=== PATIENT | female | born 1965 | race Caucasian/White ===

== ENCOUNTER 2022-05-06 09:45 | Outpatient (CLI) | payer OTHER, SELFPAY ==
[2022-05-06 15:23] LABS: Chloride* 109 mmol/L (96-114)
[2022-05-06 15:24] LABS: Albumin* 4.3 g/dL (3.3-5.0); Potassium* 4.9 mmol/L (3.6-5.1); Sodium* 142 mmol/L (135-149)
[2022-05-06 15:26] LABS: Carbon Dioxide* 28 mmol/L (20-32); Cholesterol* 215 mg/dL (90-199)
[2022-05-06 15:27] LABS: Alanine Aminotransferase* 15 U/L (4-35); Alkaline Phosphatase* 100 U/L (40-150); Aspartate Amino Transferase* 18 U/L (12-35); Bilirubin Total* 0.8 mg/dL (0.1-1.5); Blood Urea Nitrogen* 12 mg/dL (7-30); Calcium* 9.9 mg/dL (8.4-10.6); Creatinine* 0.9 mg/dL (0.5-1.5); Estimated Glomerular Filt Rate 75 ml/min; Glucose* 95 mg/dL (60-115); Total Protein* 6.9 g/dL (6.0-8.3); Triglycerides* 78 mg/dL (40-149)
[2022-05-06 15:28] LABS: HDL Cholesterol* 64 mg/dL (>=50); LDL Cholesterol Calculated 135 mg/dL (<100)
[2022-05-06 16:12] LABS: Vitamin B12* 873 pg/mL (243-894)
== END 2022-05-06 09:46 | disposition home or self-care (01) ==
PROVIDERS: PCP Physician Assistant Medical; Visit Provider Physician Assistant Medical
DX: Z00.00 Encounter for general adult medical examination without abnormal findings (principal); E66.01 Morbid (severe) obesity due to excess calories; Z13.6 Encounter for screening for cardiovascular disorders
CPT/HCPCS: 80053; 80061; 82607

== ENCOUNTER 2023-01-21 08:00 | Outpatient (RCR) | payer OTHER, SELFPAY | END 2023-02-02 11:11 | disposition home or self-care (01) | PROVIDERS: PCP Physician Assistant Medical; Visit Provider Physician Assistant Medical | DX: M25.551 Pain in right hip (principal); M54.50 Low back pain, unspecified; Z51.89 Encounter for other specified aftercare | CPT/HCPCS: 97110; 97140; 97161 ==

== ENCOUNTER 2023-03-03 11:46 | Outpatient (CLI) | payer OTHER, SELFPAY ==
[2023-03-03 23:32] LABS: Chlamydia DNA Amplified* NOT DETECTED (No Detected); GC DNA Amplified* NOT DETECTED (No Detected)
== END 2023-03-03 11:47 | disposition home or self-care (01) ==
PROVIDERS: PCP Physician Assistant Medical; Visit Provider Physician Assistant Medical
DX: Z00.00 Encounter for general adult medical examination without abnormal findings (principal); E53.8 Deficiency of other specified B group vitamins; E66.01 Morbid (severe) obesity due to excess calories; R53.83 Other fatigue; Z11.3 Encounter for screening for infections with a predominantly sexual mode of transmission
CPT/HCPCS: 82306; 82728; 83540; 83550; 84443; 87491; 87591

== ENCOUNTER 2023-05-03 13:19 | Outpatient (CLI) | payer OTHER, SELFPAY ==
--- NOTE | 2023-05-03 14:00 | CRLHL7_ITS ---
For Patients: As a result of the Century Cures Act, medical imaging exams and procedure reports are released immediately into your electronic medical record. You may view this report before your referring provider. If you have questions, please contact your health care provider. INDICATION: Eval for constipation, mass, ovary Abdomen pain for weeks RLQ PAIN . TECHNIQUE: CT abdomen and pelvis acquired with 100 cc Omnipaque 350 IV contrast. COMPARISON: None. FINDINGS: Lower chest: Unremarkable. Liver: Unremarkable. Normal in size and attenuation. No suspicious masses. Gallbladder and bile ducts: Unremarkable. No stones or inflammation. No biliary dilatation. Pancreas: Unremarkable. No mass or inflammation. Spleen: Unremarkable. Normal in size. No masses. Adrenal glands: Bilateral adrenal gland nodules, indeterminate. Kidneys: Unremarkable. No suspicious masses, stones, or hydronephrosis. GI tract: Mild proximal large bowel colonic wall thickening. Small bowel is normal in caliber. No sign of mass or inflammation. Normal appendix. Vasculature: Abdominal aorta is normal in caliber. Mesenteric arteries are patent. Lymph nodes: No lymphadenopathy. Peritoneum/Abdominal Wall: Unremarkable. No sign of mass or infiltration. No free air or significant free fluid. Pelvis: Unremarkable. Bones: Unremarkable for age. IMPRESSION: Mild colonic wall thickening may be seen in the setting of colitis. Otherwise, no acute intra-abdominal process identified. Please note that all CT scans at this facility use dose modulation, iterative reconstruction, and/or weight-based dosing when appropriate to reduce radiation dose to as low as reasonably achievable. Dictated by Daina Richardson MD @ 05/03/2023 3:14:21 PM (Electronically Signed)
== END 2023-05-03 13:20 | disposition home or self-care (01) ==
PROVIDERS: PCP Physician Assistant Medical; Visit Provider Physician Assistant Medical
DX: R10.9 Unspecified abdominal pain (principal)
CPT/HCPCS: 74177; Q9967

== ENCOUNTER 2023-05-12 11:05 | Outpatient (CLI) | payer OTHER, SELFPAY | END 2023-05-12 11:06 | disposition home or self-care (01) | LOC: NFLDREF 05-13 05:09 | PROVIDERS: PCP Physician Assistant Medical; Referring Provider Physician Assistant Medical; Visit Provider Physician Assistant Medical | DX: K63.9 Disease of intestine, unspecified (principal) | CPT/HCPCS: 86140; 86258; 86364 ==

== ENCOUNTER 2023-05-20 08:18 | Outpatient (CLI) | payer OTHER, SELFPAY ==
--- NOTE | 2023-05-20 11:00 | CRLHL7_ITS ---
For Patients: As a result of the Century Cures Act, medical imaging exams and procedure reports are released immediately into your electronic medical record. You may view this report before your referring provider. If you have questions, please contact your health care provider. INDICATION: Right upper quadrant pain COMPARISON: 05/03/2023 TECHNIQUE: Real time goetz scale imaging and color Doppler analysis was performed of the right upper quadrant. FINDINGS: The patient`s liver is of normal size and has uniform echogenicity. A simple anechoic cyst is present within the left hepatic lobe measuring 4.2 x 2.5 x 4.5 cm. No suspicious intrahepatic mass. There is a normal appearance of the hepatic IVC and proximal abdominal aorta. There is no evidence of ascites. The gallbladder is of normal size. There is a solid sessile nodule arising from the gallbladder wall measuring 7 x 9 x 6 millimeters with mild internal vascularity. Two layering echogenic stones are present the gallbladder wall measures 1.4 mm in thickness. The common bile duct is of normal size and measures 4.1 mm in diameter at the level of the alexia hepatis. The pancreas appears normal. There is no evidence of a stone or hydronephrosis within the right kidney. The right kidney measures 11.6 cm in length. IMPRESSION: 9 millimeter slightly vascular sessile gallbladder polyp. Surgery referral recommended for consideration of cholecystectomy versus follow-up. There are 2 mobile gallstones also present within the gallbladder lumen. No biliary obstruction. Dictated by Carlito Wright MD @ 05/20/2023 11:10:06 AM (Electronically Signed)
== END 2023-05-20 08:19 | disposition home or self-care (01) ==
LOC: US 08:19
PROVIDERS: PCP Physician Assistant Medical; Visit Provider Physician Assistant Medical
DX: R10.11 Right upper quadrant pain (principal); K80.20 Calculus of gallbladder without cholecystitis without obstruction
CPT/HCPCS: 76705

== ENCOUNTER 2023-05-23 15:45 | Outpatient (CLI) | payer OTHER, SELFPAY ==
--- NOTE | 2023-05-23 16:00 | CRLHL7_ITS ---
For Patients: As a result of the Century Cures Act, medical imaging exams and procedure reports are released immediately into your electronic medical record. You may view this report before your referring provider. If you have questions, please contact your health care provider. INDICATION: Left ovarian cyst, back pain. TECHNIQUE: Transabdominal and transvaginal pelvic ultrasound. COMPARISON: 05/03/2023 CT. FINDINGS: Uterus is anteverted measures 4.3 x 1.7 x 3.4 cm. Endometrial stripe thickness is 2 mm. Right ovary appears normal and has normal color and spectral Doppler flow. 1.3 cm simple cyst in the right ovary. Left ovary is mainly replaced by a 6 x 4 cm complex cyst containing septations and mural nodularity. Possible color flow within 1 of the nodules. IMPRESSION: 1. 6 x 4 cm complex left ovarian cyst suspicious for neoplasm. 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 2. 1.3 cm simple right ovarian cyst. Dictated by Bob Randolph MD @ 05/24/2023 3:35:19 PM (Electronically Signed)
== END 2023-05-23 15:46 | disposition home or self-care (01) ==
LOC: US 15:46
PROVIDERS: PCP Physician Assistant Medical; Visit Provider Physician Assistant Medical
DX: N83.202 Unspecified ovarian cyst, left side (principal); M54.9 Dorsalgia, unspecified; N83.201 Unspecified ovarian cyst, right side
CPT/HCPCS: 76830; 76856; 93976

== ENCOUNTER 2023-05-27 14:04 | Outpatient (CLI) | payer OTHER, SELFPAY | END 2023-05-27 14:05 | disposition home or self-care (01) | LOC: LKVREF 14:05 | PROVIDERS: PCP Physician Assistant Medical; Visit Provider Obstetrics & Gynecology | DX: N83.202 Unspecified ovarian cyst, left side (principal) | CPT/HCPCS: 86304 ==

== ENCOUNTER 2023-09-23 08:02 | Outpatient (CLI) | payer OTHER, SELFPAY ==
--- NOTE | 2023-09-23 08:15 | CRLHL7_ITS ---
For Patients: As a result of the Century Cures Act, medical imaging exams and procedure reports are released immediately into your electronic medical record. You may view this report before your referring provider. If you have questions, please contact your health care provider. BILATERAL SCREENING MAMMOGRAM WITH COMPUTER-AIDED DETECTION AND TOMOSYNTHESIS TECHNIQUE: CC and MLO views were obtained. These mammographic images have been obtained using full-field digital technique. These mammographic images were interpreted with the benefit of computer-aided detection. Breast Tomosynthesis was used in this interpretation. COMPARISON FILM: 09/14/22, 07/21/20, 10/05/18. FINDINGS: There are scattered areas of fibroglandular density. IMPRESSION: There is no radiographic evidence for malignancy. ASSESSMENT: BI-RADS Category 1: Negative RECOMMENDATION: Routine screening mammogram in 1 year. A lay language report of this examination will be provided to the patient. Carlito Wright M.D. Diagnostic Radiologist [email or web address] SP/Dictated by: Carlito Wright MD @ 09/23/2023 10:29:00 AM (Electronically Signed)
== END 2023-09-23 08:03 | disposition home or self-care (01) ==
PROVIDERS: PCP Physician Assistant Medical; Visit Provider Physician Assistant Medical
DX: Z12.31 Encounter for screening mammogram for malignant neoplasm of breast (principal)
CPT/HCPCS: 77063; 77067

== ENCOUNTER 2023-11-03 09:34 | Day surgery (SDC) | payer OTHER, SELFPAY ==
[2023-11-03] VITALS (12 sets, daily range): BP systolic 104–155; BP diastolic 65–82; PULSE 56–75; RESP 16–146; TEMP 36.3–37.1; O2SAT 98–100; BMI 24.7
[2023-11-03] MEDS: LACTATED RINGERS 1000 ML 1,000 ML 100 ML IV (10:19)
[2023-11-03] MEDS: SODIUM CHLORIDE 0.9 % (FLUSH) 10 ML SYRINGE IVF (10:20)
--- NOTE | 2023-11-03 10:21 | W.ANESCHARGE ---
Anesthesia Charges Start Date/Time Anesthesia Start Date: 11/03/23 Anesthesia Start Time: 11:18 Stop Date/Time Anesthesia Stop Date: 11/03/23 Anesthesia Stop Time: 12:40
--- NOTE | 2023-11-03 11:19 | W.PM.H&PU ---
History & Physical Update History & Physical Update H&P Reviewed and patient assessed: The following changes are noted below H&P Updates: Patient underwent hysterectomy with BSO in June for an ovarian cyst. This fortunately was benign. No other updates.
--- NOTE | 2023-11-03 11:20 | P.GSOP_ITS ---
Operative Note Date of procedure: 11/03/23 Pre-op diagnosis: 9 mm Gallbladder polyp in the setting of abdominal pain Post-op diagnosis: Same Type of Procedure: Laparoscopic cholecystectomy Indications: The patient is a 58-year-old female who on workup for abdominal pain was found to have a 9 mm polyp in her gallbladder. It is unclear whether not the symptoms she was having were related, however because of the size of the polyp and her age over 50, removal was recommended. After discussion of risks and benefits she agreed to proceed. Procedure Description: After discussing the risks and benefits of the procedure, the patient signed informed consent.? The operative site was marked and the patient was brought to the operating room and placed on the operating table in supine position.? Care was taken to pad the patient's pressure points.?? The patient was then intubated by anesthesia.?? The operative site was then prepped and draped in the usual sterile fashion.? A time-out was then performed. Entrance to the abdomen was 1st attempted in his sign fashion below the umbilicus. The fascia was incised and it was thought that the peritoneal space was entered, however when the area was insufflated it appeared as though she either had a significant amount of scar tissue from her prior 2 surgeries, or that the preperitoneal space had been entered. I did attempt pull the tissue into view to try to enter the peritoneum, however, the patient had a fair amount of fat within the preperitoneal layer and this made it difficult to visualize the peritoneum. Wanting to avoid risk of bowel injury, given that she had had prior laparotomy incision, I elected to enter the abdomen via Visiport technique in the right upper quadrant. This was performed and I was able to successfully enter the abdomen. The area about the umbilicus was visualized. I had indeed not entered the peritoneum with the 1st attempt; I had been within the preperitoneal space. Therefore a 10 mm port was then placed through the peritoneum below the umbilicus under direct vision. An additional port was pl aced in the epigastric area away from the patient's adhesions from her prior surgery as well as in the right upper quadrant. The patient was then placed in reverse Trendelenburg position with the right side up. The gallbladder fundus was grasped and retracted cephalad. A small amount of dissection was needed to free omental adhesions from the gallbladder. The infundibulum was grasped. A combination of hook cautery and blunt dissection was used to carefully dissect out the cystic duct and artery until they could clearly be seen entering the gallbladder without any intervening structures. The gallbladder was dissected off the cystic plate to achieve the critical view. Once this was achieved the cystic duct and artery were each clipped with 2 clips proximally and 1 clip distally and transected with the scissors. The gallbladder was then taken off of the liver bed and removed from the abdomen using an Endo-Catch bag. The gallbladder bed was surveyed for hemostasis which appeared adequate. A small amount of bile which had spilled on the liver bed it self was suction. The ports were removed the abdomen desufflated. The umbilical port fascia was closed with 0 Vicryl. The skin was closed with absorbable subcuticular suture. Sterile dressings were applied. Instrument sponge and needle counts were correct at the end of the case. The patient was then woken and transferred to the PACU in stable condition. The patient tolerated the procedure well. Findings: Normal appearing gallbladder with intra-abdominal adhesions from prior surgery. Anesthesia: GETA Surgeon: Peggy Goodman MD Estimated blood loss (mL): 5 Specimen: Gallbladder Condition: stable Disposition: PACU
[2023-11-03] MEDS: CEFAZOLIN 2 GM INJ IVP (11:28)
--- NOTE | 2023-11-03 11:41 | W.ANESCHARGE ---
Anesthesia Charges Start Date/Time Anesthesia Start Date: 11/03/23 Anesthesia Start Time: 11:18 Stop Date/Time Anesthesia Stop Date: 11/03/23 Anesthesia Stop Time: 12:40
[2023-11-03] MEDS: BUPIVACAINE 0.25% 30 ML INJECTION (12:00)
--- NOTE | 2023-11-03 12:59 | SUR.PHASEI ---
Patient meets anesthesia PACU discharge criteria
[2023-11-03] MEDS: fentaNYL 100 MCG/2 ML inj 50 MCG IVP ×2 (13:04→13:26)
[2023-11-03] MEDS: HYDROCODONE-ACETAMIN 5-325 MG 1 TAB PO (13:26)
== END 2023-11-03 14:20 | disposition home or self-care (01) ==
PROVIDERS: PCP Physician Assistant Medical; Visit Provider Surgery
PROC: 0FT44ZZ Resection of Gallbladder, Percutaneous Endoscopic Approach (ICD-10-PCS; CPT 47562; principal; 2023-11-03 11:00)
DX: K82.4 Cholesterolosis of gallbladder (principal); R10.9 Unspecified abdominal pain
CPT/HCPCS: 47562; 790; 88304; A9270; J0330; J0665; J0690; J1100; J1170; J2250; J2405; J2704; J3010; J7120

== ENCOUNTER 2023-11-08 12:41 | Outpatient (CLI) | payer OTHER, SELFPAY ==
--- NOTE | 2023-11-08 13:00 | CRLHL7_ITS ---
For Patients: As a result of the Century Cures Act, medical imaging exams and procedure reports are released immediately into your electronic medical record. You may view this report before your referring provider. If you have questions, please contact your health care provider. BILATERAL CAROTID ULTRASOUND 11/08/2023 CLINICAL HISTORY: Dizziness and giddiness. TECHNIQUE: The carotid circulations and the vertebral arteries in the neck were examined with goetz-scale ultrasound, color-flow and Doppler spectral analysis. Degrees of stenosis were determined using SRU 2002 Consensus Panel Criteria. COMPARISON: FINDINGS: No appreciable plaque in the carotid arteries. Normal velocities with no evidence for hemodynamically significant carotid stenosis. PEAK SYSTOLIC VELOCITY: RIGHT Subclavian A: 167 Distal CCA: 94 Mid CCA: 127 Prox ICA: 64 Mid ICA: 69 Dist ICA: 75 Vertebral artery: 84, antegrade ICA/CCA Ratio: 1.3 LEFT Subclavian A: 117 Distal CCA: 117 Mid CCA: 133 Prox ICA: 86 Mid ICA: 80 Dist ICA: 64 Vertebral artery: 70, Antegrade ICA/CCA Ratio: 1.4 IMPRESSION: Normal carotid ultrasound. Bob Randolph M.D. Body/Diagnostic Radiologist [email or web address] Transcribed: 3:26 pm DW/Dictated by: Bob Randolph MD @ 11/09/2023 2:37:00 PM (Electronically Signed)
--- NOTE | 2023-11-08 14:30 | CRLHL7_ITS ---
For Patients: As a result of the Century Cures Act, medical imaging exams and procedure reports are released immediately into your electronic medical record. You may view this report before your referring provider. If you have questions, please contact your health care provider. EXAMINATION: MRA HEAD DATE: 11/08/2023 HISTORY: Patient with dizziness. TECHNIQUE: 3D TOF MRA of the head was performed. COMPARISON: None. FINDINGS: The intracranial segments of the right internal carotid artery are normal. The anterior communicating artery is seen. The visualized portions of the right middle and anterior cerebral arteries are normal. The intracranial segments of the left internal carotid artery are normal. The visualized portions of the left middle and anterior cerebral arteries are normal. The right vertebral artery is dominant. The visualized intracranial portions of the vertebral arteries are normal. The basilar artery is normal. The right posterior cerebral artery is normal. The left posterior cerebral artery is normal. IMPRESSION: Normal MRA of the head. Dictated by: Allie Dunn MD @ 11/08/2023 22:41:10 (Electronically Signed)
== END 2023-11-08 12:42 | disposition home or self-care (01) ==
LOC: US 12:42
PROVIDERS: PCP Physician Assistant Medical; Visit Provider Otolaryngology
DX: R42 Dizziness and giddiness (principal)
CPT/HCPCS: 70544; 93880

== ENCOUNTER 2024-10-04 08:29 | Outpatient (CLI) | payer OTHER, SELFPAY | END 2024-10-04 08:30 | disposition home or self-care (01) | LOC: NFLDREF 10-08 14:41 | PROVIDERS: PCP Physician Assistant Medical; Referring Provider Physician Assistant Medical; Visit Provider Physician Assistant Medical | DX: Z00.00 Encounter for general adult medical examination without abnormal findings (principal); F32.A Depression, unspecified; E53.8 Deficiency of other specified B group vitamins; E78.5 Hyperlipidemia, unspecified; Z78.0 Asymptomatic menopausal state; Z79.899 Other long term (current) drug therapy | CPT/HCPCS: 80053; 80061; 82306; 82607; 84443 ==

== ENCOUNTER 2024-10-30 09:58 | Outpatient (CLI) | payer OTHER, SELFPAY ==
--- NOTE | 2024-10-30 10:15 | CRLHL7_ITS ---
For Patients: As a result of the Century Cures Act, medical imaging exams and procedure reports are released immediately into your electronic medical record. You may view this report before your referring provider. If you have questions, please contact your health care provider. INDICATION: BILATERAL SCREENING MAMMOGRAM, ASYMPTOMATIC 59 Y/O FEMALE COMPARISON: 09/23/2023, 09/20/2022, 09/14/2022 TECHNIQUE: Digital mammogram in CC and MLO projections including computer-aided detection (CAD) and tomosynthesis. BREAST COMPOSITION: There are scattered areas of fibroglandular density. FINDINGS: No suspicious findings. ASSESSMENT: BI-RADS 1 Negative RECOMMENDATION: Annual screening mammogram. A lay language report of this examination will be provided to the patient. Dictated by: Carlito Wright MD @ 10/31/2024 11:49:25 (Electronically Signed)
== END 2024-10-30 09:59 | disposition home or self-care (01) ==
LOC: MAMMO 09:59
PROVIDERS: PCP Physician Assistant Medical; Visit Provider Physician Assistant Medical
DX: Z12.31 Encounter for screening mammogram for malignant neoplasm of breast (principal)
CPT/HCPCS: 77063; 77067